=== PATIENT | male | born 1975 | race Hispanic/Latino ===

== ENCOUNTER 2017-03-10 14:42 | Inpatient (IN) | payer SELFPAY ==
[2017-03-10 18:34] LABS: #Basophils 0.1 thou/uL (0.0-0.2); #Eosinphils 0.1 thou/uL (0.0-0.7); #Monocytes 0.3 thou/uL (0.11-0.59); %Basophils 1.3 % (0.0-1.0); %Lymphocytes 30.4 % (21.0-51.0); %Neutrophils 62.3 % (42.0-75.0); Hemoglobin 15.1 g/dL (14.0-18.0); Mean Corpuscular HGB CONC 33.2 g/dL (32.0-36.0); Mean Corpuscular Hemoglobin 30.4 pg (27.0-31.0); Mean Corpuscular Volume 91.7 fl (80.0-94.0); Mean Platelet Volume 8.3 fL (7.4-10.4); Platelet Count 264 thou/uL (130-400); RBC Distribution Width 11.7 % (11.5-14.5); Red Blood Cell (RBC) Count 4.95 mill/uL (4.70-6.10); White Blood Cell (WBC) Count 6.5 thou/uL (4.8-10.8)
[2017-03-10 18:54] LABS: ALT (SGPT) 46 U/L (8-55); AST (SGOT) 33 U/L (5-34); Albumin 4.3 g/dL (3.5-5.0); Alkaline Phosphatase 117 U/L (40-150); Anion Gap 25 mmol/L (10-20); BUN (Urea Nitrogen) 10 mg/dL (8.9-20.6); Bilirubin, Total 0.5 mg/dL (0.2-1.2); Calc. Creatinine Clearance 0 mL/min (70-130); Calcium 9.1 mg/dL (7.8-10.44); Carbon Dioxide 10 mmol/L (22-29); Chloride 97 mmol/L (98-107); Estimated GFR-MDRD 58; Globulin 3.8 g/dL (2.4-3.5); Glucose 440 mg/dL (70-105); Potassium 3.6 mmol/L (3.5-5.1); Protein, Total 8.1 g/dL (6.0-8.3); Sodium 128 mmol/L (136-145)
[2017-03-10 19:23] LABS: Bilirubin Negative (Negative); Blood, Urine Negative (Negative); Clarity CLEAR (Clear); Glucose, Urine (Dipstick) >=1000 mg/dL (Negative); Leukocyte Negative (Negative); Nitrite Negative (Negative); Protein, Urine (Dipstick) 30 mg/dL (Neg-Trace); Specific Gravity, Urine 1.041 (1.002-1.036); Urobilinogen 0.2 mg/dL (0.2-1.0)
[2017-03-10 19:25] LABS: Bacteria/HPF None Seen HPF (None Seen); Hyaline Casts/LPF 7-10 HYALINE CAST LPF (0-3 Hyaline); Pathc Cast-AUWi Flag 1.49 (0-2.49); Squamous Epithelial 0-3 HPF (0-3); WBC/HPF 0-3 HPF (0-3)
[2017-03-10] MEDS ORDERED: Insulin Regular 300 UNITS/3 ML VIAL ONE (19:40)
[2017-03-10] MEDS ORDERED: Ondansetron HCl/PF 4 MG/2 ML Vial ONE (19:40)
[2017-03-10 19:46] LABS: Base Excess-Venous -14.1 mmol/L (-30.0-30.0); Bicarbonate (HCO3v) 9.2 mmol/L (1.0-85.0); CO2 Tension (PvCO2) 18.3 mmHg (41.0-51.0); Calcium, Ionized 1.07 mmol/L (1.12-1.32); Hemoglobin - Calc 17.3 g/dL (12.0-18.0); O2 Tension (PvO2) 85.6 mmHg (35.0-45.0); Potassium 3.7 mmol/L (3.4-4.7); T. Carbon Dioxide 9.8 mmol/L (1.0-85.0); pH (Venous) 7.309 (7.35-7.45); vO2 Saturation-calc 95.9 % (0.0-100.0)
[2017-03-10 19:52] LABS: Magnesium 1.9 mg/dL (1.6-2.6); Phosphorus 3.1 mg/dL (2.3-4.7)
[2017-03-10] MEDS ORDERED: Insulin Regular 100 units/100 ml in NS IVPB SCH (20:15)
[2017-03-10] MEDS ORDERED: NS 0.9% w/ 20 MEQ KCL 1,000 ML IV SCH (20:15)
--- NOTE | 2017-03-10 20:32 | RAD ---
PORTABLE CHEST: 03/10/17 HISTORY: Sore throat and cough. Lungs are clear. No infiltrate identified. Heart and mediastinum unremarkable. IMPRESSION: No acute process. POS: [facility]
[2017-03-11] MEDS ORDERED: D5 1/2 NS w/20 mEq KCL 1,000 ML IV PRN (01:00)
[2017-03-11] MEDS ORDERED: Sodium Chloride 0.9% 1,000 ML IV PRN ×4 (01:00)
[2017-03-11] MEDS ORDERED: Dextrose 5% in Water 1,000 ML IV PRN ×4 (01:00→20:31)
[2017-03-11] MEDS ORDERED: Dextrose 5 %-0.45 % NaCl 1,000 ML IV PRN (01:00)
[2017-03-11] MEDS ORDERED: NS 0.9% w/ 20 MEQ KCL 1,000 ML IV PRN ×2 (01:00)
[2017-03-11] MEDS ORDERED: Dextrose 50% Abboject 50 ML SYRINGE SLOW IVP PRN ×4 (01:00→20:31)
[2017-03-11] MEDS ORDERED: CCU Electrolyte Replacement 1 EACH IVPB SCH (01:00)
[2017-03-11] MEDS ORDERED: Ondansetron HCl/PF 4 MG/2 ML Vial IVP PRN (01:00)
[2017-03-11] MEDS: D5 1/2 NS w/20 mEq KCL 1,000 ML IV SCH ×2 (01:05→02:13)
[2017-03-11] MEDS ORDERED: Potassium Chloride 40 MEQ in Sodium Chloride 0.9% 250 ML 250 ML IVPB PRN (01:14)
[2017-03-11] MEDS ORDERED: Magnesium 2 GM/NS 0.9% 100 ML 2 GM in Premix Bag 1 BAG IVPB PRN (01:14)
[2017-03-11] MEDS ORDERED: Potassium Phosphate 12 MMOL in Sodium Chloride 0.9% 250 ML 250 ML IV PRN (01:14)
[2017-03-11] MEDS ORDERED: Magnesium Oxide 400 MG TAB PO PRN ×2 (01:14)
[2017-03-11] MEDS ORDERED: Potassium Chloride 20 MEQ TAB PO PRN (01:14)
[2017-03-11] MEDS ORDERED: Potassium Phosphate 9 MMOL in Sodium Chloride 0.9% 100 ML IVPB PRN (01:14)
[2017-03-11] MEDS ORDERED: Potassium Phosphate 15 MMOL in Sodium Chloride 0.9% 250 ML 250 ML IV PRN (01:14)
[2017-03-11] MEDS ORDERED: CCU ELECTROLYTE REPLACEMENT PROTOCOL FS PRN (01:14)
[2017-03-11] MEDS ORDERED: Potassium Chloride 40 MEQ in Premix Bag 1 BAG IVPB PRN (01:14)
[2017-03-11 01:24] VITALS: BMI 23.2
[2017-03-11 01:35] LABS: Hemoglobin A1c 14.1 % (4.0-6.0)
[2017-03-11 01:47] LABS: Anion Gap 10 mmol/L (10-20); BUN (Urea Nitrogen) 7 mg/dL (8.9-20.6); Calc. Creatinine Clearance 89 mL/min (70-130); Calcium 8.2 mg/dL (7.8-10.44); Carbon Dioxide 17 mmol/L (22-29); Chloride 110 mmol/L (98-107); Estimated GFR-MDRD Greater than 90; Glucose 247 mg/dL (70-105); Sodium 134 mmol/L (136-145)
[2017-03-11 01:57] LABS: Potassium 2.9 mmol/L (3.5-5.1)
--- NOTE | 2017-03-11 02:51 | ADD-HP ---
Please see the history and physical done by the resident for which I concur. The patient was seen an d evaluated and discussed with the resident. HISTORY OF PRESENT ILLNESS: A 41-year-old male who for the last month has been feelin g weaker, more tired in the last 4 or 5 days, a lot of abdominal pain, little bit of vomiting, also i s complaining of sore throat. Actually, he was seen in a "[facility]" earlier this week, but no blood workup was done. He was found to be in DKA. He has not had blood workup ever done in his life . No family history of diabetes; little bit of polyuria and polydipsia; and a lot of weight loss, no t sure how much. PAST MEDICAL HISTORY: All per the resident's history and physical, which was reviewed. All of which actually that were completely negative other than above. PAST SURGICAL HISTORY: All per the resident's history and physical, which was reviewed. All of whic h actually that were completely negative other than above. MEDICATIONS: All per the resident's history and physical, which was reviewed. All of which actually that were completely negative other than above. SOCIAL HISTORY: All per the resident's history and physical, which was reviewed. All of which actua lly that were completely negative other than above. REVIEW OF SYSTEMS: All per the resident's history and physical, which was reviewed. All of which ac tually that were completely negative other than above. PHYSICAL EXAMINATION: VITAL SIGNS: Afebrile. Vital signs are stable. GENERAL: No apparent distress. Vitals were fine on IV fluids currently. HEENT: Moist mucosa currently. Of note, throat did show some thrush lesions on the soft palate. NECK: No lymphadenopathy, thyromegaly. CHEST: Clear. CARDIOVASCULAR: Regular rate and rhythm. ABDOMEN: Positive bowel sounds. Soft, nontender, nondistended. EXTREMITIES: No edema. LABORATORY AND X-RAY FINDINGS: Blood workup significant for normal CBC. Venous blood gas, pH 7.30, pCO2 of 18, pO2 of 85. Chemistry significant for a low sodium of 128. Initially, sugar was 440. Po tassium borderline low at 3.6. Positive beta hydroxybutyrate. Urine significant for ketones. ASSESSMENT AND PLAN: 1. Diabetic ketoacidosis. We will admit to the [facility] for a standard DKA protocol, IV insulin drip, a nd follow electrolytes. Already started and replaced his potassium, which is already in the low end of normal. I anticipate him switching over to insulin and subcu scheduled insulin and off IV drip. Hopefully, fairly quickly once the gap closes and we get him out of acidosis. He will need a lot cou nseling. They did give him some calcium in the room tonight; discussing diabetes implications and tr eatment options, and the importance of diet. 2. Thrush. We will treat that with Nystatin swish and swallow.
--- NOTE | 2017-03-11 04:18 | HP-2 ---
DATE OF ADMISSION: 03/10/2017 CODE STATUS: FULL. PRIMARY CARE PHYSICIAN: None. ATTENDING: Cesar Mcfarland MD RESIDENT: Essence Anderson MD HISTORIAN: Self. CHIEF COMPLAINT: Abdominal pain. HISTORY OF PRESENT ILLNESS: This is a 41-year-old male with no known past medical history, who prese nts to the ED for abdominal pain that has been going on for 10 days, diffuse abdominal pain associate d with vomiting that started yesterday. Denies any diarrhea. He also denies any fevers. He also re ports polyuria and polydipsia. This has been going on for several weeks. The patient has had signif icant weight loss over the past month, he reports around 40 pounds, but has not actually weighed hims elf. He has no history of diabetes. No family history of diabetes. In the ER, he was given normal saline with KCl at 500, Humulin R 10 units IV push, Novolin 6.5 units per hour, initially 1 liter cristopher us, Zofran 4 mg. PAST MEDICAL HISTORY: None. PAST SURGICAL HISTORY: None. ALLERGIES: No known drug allergies. MEDICATIONS: None. FAMILY HISTORY: None. SOCIAL HISTORY: Smokes tobacco socially. Alcohol, drinks 20 beers on weekends and about 1-2 beers d uring the week night. He denies any drug use. REVIEW OF SYSTEMS: General: Denies fever or chills. Positive for weight change. Eyes: Negative f or vision changes or eye pain. ENT: Negative for rhinorrhea or sore throat. Respiratory: Negative for cough or shortness of breath. Cardiovascular: Negative for chest pain or edema. Gastrointesti nal: Negative for nausea, vomiting, or diarrhea. Genitourinary: Positive for polyuria. Endocrine: Positive for polydipsia. Skin: Negative for rashes or lesions. Musculoskeletal: Negative for pa in or tenderness. Neurologic: Negative for weakness or numbness. PHYSICAL EXAMINATION: VITAL SIGNS: Blood pressure 138/97, pulse 84, respiratory rate 18, temperature 98.9, pulse ox 99% on room air, current weight 65.77 kilograms. GENERAL: Alert, oriented x3, in no acute distress, well-nourished, appropriately interactive. EYES: PERRLA. Extraocular muscles are intact. Conjunctivae within normal limits. ENT: Nasal mucosa and oropharynx within normal limits. NECK: Supple. No lymphadenopathy. CARDIAC: Regular rate and rhythm. No murmurs, gallops, 2+ radial and pedal pulses. LUNGS: Normal effort, no retractions, clear to auscultation bilaterally. SKIN: Warm, dry. No cyanosis or lesions. ABDOMEN: Soft, mildly tender to palpation diffusely. No guarding or rebound tenderness. Normoactiv e bowel sounds. No masses or distention. EXTREMITIES: No cyanosis or edema. MUSCULOSKELETAL: Structure and tone within normal limits. Full range of motion. NEUROLOGICAL: No focal deficits. Sensation within normal limits. GCS 15. PSYCHIATRIC: Appropriate. LABORATORY AND DIAGNOSTIC DATA: WBC 6.5, hemoglobin 15.1, hematocrit 45.4, platelets 264. Sodium 12 8, corrected to 133, potassium 3.6, chloride 97, CO2 of 10, BUN 10, creatinine 1.35, GFR 58, glucose 440, anion gap 21, calcium 9.1, total bilirubin 0.5, AST 33, ALT 46, alkaline phosphatase 117. Beta hydroxybutyrate 8.51, phosphorus 3.1, magnesium 1.9. Rapid Strep screen negative. Urinalysis showed 30 protein, 80 ketones, and greater than 1000 glucose. VBG had a pH of 7.3, pCO2 of 18.3, pO2 of 85 .6. Chest x-ray showed no acute process. ASSESSMENT AND PLAN: This is a 41-year-old male who presents with: 1. Diabetic ketoacidosis. The patient has elevated ketones, anion gap of 21, pH of 7.3. No known h istory or diagnosis of diabetes. We will admit to IMCU. We will make the patient n.p.o., start an i nsulin drip and fluids with potassium chloride until the patient's gap close. We will check q.4 hour BMPs. We will monitor the anion gap and potassium closely. We will start on subcutaneous insulin o nce the gap closes. 2. Acute kidney injury. The patient is dehydrated secondary to diabetic ketoacidosis. We will give heavy fluids following the DKA protocol, monitor with q.4 hour BMPs. 3. Diabetes mellitus is a new diagnosis. Patient will be started on an insulin regimen and discharg ed on diabetic supplies. We will consult dietitian. We will check an A1c. 4. Alcohol abuse. Patient is a binge drinker on the weekends. We will put on ASE protocol and coun seled about cessation. 5. Venous thromboembolism prophylaxis, sequential compression devices. DISPOSITION: Admit to IMCU. Symptomatic medication will be provided. History and physical exam as well as management discussed with Dr. Mcfarland.
[2017-03-11 04:46] LABS: Anion Gap 8 mmol/L (10-20); BUN (Urea Nitrogen) 7 mg/dL (8.9-20.6); Calc. Creatinine Clearance 102 mL/min (70-130); Calcium 8.2 mg/dL (7.8-10.44); Carbon Dioxide 18 mmol/L (22-29); Chloride 111 mmol/L (98-107); Estimated GFR-MDRD Greater than 90; Glucose 159 mg/dL (70-105); Sodium 134 mmol/L (136-145)
[2017-03-11] MEDS ORDERED: Insulin NPH/Reg Insulin Hm 300 UNITS/3 ML VIAL SC SCH (07:30)
[2017-03-11 07:53] LABS: Anion Gap 8 mmol/L (10-20); BUN (Urea Nitrogen) 6 mg/dL (8.9-20.6); Calc. Creatinine Clearance 109 mL/min (70-130); Calcium 8.1 mg/dL (7.8-10.44); Carbon Dioxide 16 mmol/L (22-29); Chloride 113 mmol/L (98-107); Estimated GFR-MDRD Greater than 90; Glucose 188 mg/dL (70-105); Potassium 3.6 mmol/L (3.5-5.1); Sodium 133 mmol/L (136-145)
--- NOTE | 2017-03-11 07:59 | PDOC.FM ---
- Subjective Subjective: Patient feels better this morning. His abdominal pain is improved and NV are resolved. He is fatigued but otherwise improved. - Objective MAR Reviewed: Yes Vital Signs & Weight: Vital Signs (12 hours) Temp Pulse Resp BP Pulse Ox 03/11/17 07:00 98.4 F 75 16 105/72 99 03/11/17 04:00 98.1 F 71 16 109/65 97 03/11/17 02:00 98.5 F 72 16 98 03/11/17 01:10 98.5 F 72 16 113/70 97 Weight Weight 59.466 kg I&O: 03/10/17 03/11/17 03/12/17 06:59 06:59 06:59 Intake Total 1577 253 Output Total 550 Balance 1027 253 Result Diagrams: 03/10/17 18:16 03/11/17 11:36 EKG Reviewed by me: Yes Radiology Reviewed by me: Yes Phys Exam - Physical Examination Constitutional: NAD HEENT: PERRLA, moist MMs, oral pharynx no lesions Neck: no nodes Respiratory: no wheezing, no rales, no rhonchi Cardiovascular: RRR, no significant murmur, no rub Gastrointestinal: soft, non-tender, no distention, positive bowel sounds Musculoskeletal: no edema, pulses present Neurological: non-focal, normal sensation, moves all 4 limbs Psychiatric: normal affect, A&O x 3 Skin: no rash, normal turgor, cap refill <2 seconds Dx/Plan (1) DKA (diabetic ketoacidoses) Code(s): E13.10 - OTH DIABETES MELLITUS WITH KETOACIDOSIS WITHOUT COMA Status : Acute Qualifiers: Diabetes mellitus type: type 1 Diabetes mellitus complication detail: without coma Qualified Code(s): E10.10 - Type 1 diabetes mellitus with ketoacidosis without coma Plan: Gap closed and improved bicarb. DKA is resolved and we will transition to control of newly diagnosed DM. Patient safe to transfer to medical. (2) Diabetes mellitus Code(s): E11.9 - TYPE 2 DIABETES MELLITUS WITHOUT COMPLICATIONS Status: Acute Qualifiers: Diabetes mellitus type: other specified (including JAYCE) Diabetes mellitus complication status: with ketoacidosis Diabetes mellitus complication detail: without coma Diabetes mellitus shelter insulin use: without terminal worker use Qualified Code(s): E13.10 - Other specified diabetes mellitus with ketoacidosis without coma Plan: Initiating Novalin /30 because of funding. Will monitor blood sugars ACHS and initiate DM education (3) GAVIN (acute kidney injury) Code(s): N17.9 - ACUTE KIDNEY FAILURE, UNSPECIFIED Status: Acute (4) GERD (gastroesophageal reflux disease) Code(s): K21.9 - GASTRO-ESOPHAGEAL REFLUX DISEASE WITHOUT ESOPHAGITIS Status: Acute Plan: Start pronotix (5) Alcohol consumption binge drinking Code(s): F10.10 - ALCOHOL ABUSE, UNCOMPLICATED Status: Acute Plan: Patient consumes 20 drinks per night on weekend, but only 2-3 on weeknights. Will monitor with ASE protocol and PRN benzodiazapines
[2017-03-11] MEDS: Insulin NPH/Reg Insulin Hm 300 UNITS/3 ML VIAL SC SCH ×2 (08:15→20:51)
[2017-03-11] MEDS ORDERED: FLU VACC QS2017-18 36 mo. & older 0.5 ML SYRINGE IM ONE (09:00)
[2017-03-11 12:09] LABS: Anion Gap 9 mmol/L (10-20); BUN (Urea Nitrogen) 5 mg/dL (8.9-20.6); Calc. Creatinine Clearance 106 mL/min (70-130); Calcium 8.3 mg/dL (7.8-10.44); Carbon Dioxide 19 mmol/L (22-29); Chloride 109 mmol/L (98-107); Estimated GFR-MDRD Greater than 90; Glucose 189 mg/dL (70-105); Potassium 3.5 mmol/L (3.5-5.1); Sodium 133 mmol/L (136-145)
[2017-03-11] MEDS ORDERED: Insulin Regular 300 UNITS/3 ML VIAL SC PRN ×2 (13:13→17:41)
[2017-03-11] MEDS: Nystatin 500,000 UNITS/5 ML UDCUP SSW SCH ×3 (13:25→20:49)
[2017-03-11] MEDS ORDERED: HumaLOG 300 UNITS/3 ML VIAL SC PRN (17:40)
--- NOTE | 2017-03-11 19:26 | ADD-PRG ---
DATE OF SERVICE: 03/11/2017 Please see the note from Dr. Greer for which I agree. Overnight, the patient drastically improved as far as his DKA. Gap is closing although not completely as far as his acidosis, but his suga r is down. We will give him D5 now to make sure he get some insulin in him, otherwise continuing wit h same management. Exam today is totally normal. Abdomen is benign. The patient was seen, examined, evaluated, and discussed with the residents by bedside.
[2017-03-11 19:52] LABS: Anion Gap 11 mmol/L (10-20); BUN (Urea Nitrogen) 5 mg/dL (8.9-20.6); Calc. Creatinine Clearance 108 mL/min (70-130); Calcium 8.3 mg/dL (7.8-10.44); Carbon Dioxide 20 mmol/L (22-29); Chloride 103 mmol/L (98-107); Estimated GFR-MDRD Greater than 90; Glucose 399 mg/dL (70-105); Potassium 3.3 mmol/L (3.5-5.1); Sodium 131 mmol/L (136-145)
[2017-03-11] MEDS: HumaLOG 300 UNITS/3 ML VIAL SC PRN (21:52)
[2017-03-12 04:06] LABS: Anion Gap 11 mmol/L (10-20); BUN (Urea Nitrogen) 5 mg/dL (8.9-20.6); Calc. Creatinine Clearance 121 mL/min (70-130); Calcium 8.6 mg/dL (7.8-10.44); Carbon Dioxide 26 mmol/L (22-29); Chloride 105 mmol/L (98-107); Estimated GFR-MDRD Greater than 90; Glucose 134 mg/dL (70-105); Sodium 139 mmol/L (136-145)
[2017-03-12 04:10] LABS: Potassium 2.7 mmol/L (3.5-5.1)
[2017-03-12] MEDS ORDERED: Potassium Chloride 20 MEQ TAB PO SCH ×2 (04:30→13:00)
[2017-03-12] MEDS: Insulin NPH/Reg Insulin Hm 300 UNITS/3 ML VIAL SC SCH ×2 (09:14→20:12)
[2017-03-12] MEDS: Nystatin 500,000 UNITS/5 ML UDCUP SSW SCH ×4 (09:15→20:11)
--- NOTE | 2017-03-12 11:45 | PDOC.FM ---
- Subjective Subjective: Patient still has some minor epigastric pain but otherwise he says that he is doing well. He says that he has not started to give himself injections yet of insulin or learned to take his own blood sugar. He has been tolerating food without issue. - Objective MAR Reviewed: Yes Vital Signs & Weight: Vital Signs (12 hours) Temp Pulse Resp BP Pulse Ox 03/12/17 08:00 97.5 F L 74 16 97 03/12/17 07:00 97.5 F L 74 16 112/69 97 03/12/17 04:00 98.4 F 75 16 99/60 98 03/12/17 00:00 97.8 F 73 16 96/70 98 Weight Admit Weight 59.466 kg Weight 59.466 kg I&O: 03/11/17 03/12/17 03/13/17 06:59 06:59 06:59 Intake Total 1577 3403 Output Total 550 1800 Balance 1027 1603 Result Diagrams: 03/10/17 18:16 03/12/17 03:44 Phys Exam - Physical Examination Constitutional: NAD HEENT: PERRLA, moist MMs Neck: no nodes Respiratory: no wheezing, no rales, no rhonchi, clear to auscultation bilateral Cardiovascular: RRR, no significant murmur, no rub Gastrointestinal: soft, non-tender, no distention, positive bowel sounds Musculoskeletal: no edema, pulses present Neurological: non-focal, normal sensation, moves all 4 limbs Lymphatic: no nodes Psychiatric: normal affect, A&O x 3 Dx/Plan (1) Diabetes mellitus Code(s): E11.9 - TYPE 2 DIABETES MELLITUS WITHOUT COMPLICATIONS Status: Acute Qualifiers: Diabetes mellitus type: other specified (including JACYE) Diabetes mellitus complication status: with ketoacidosis Diabetes mellitus complication detail: without coma Diabetes mellitus fdc insulin use: without fdc use Qualified Code(s): E13.10 - Other specified diabetes mellitus with ketoacidosis without coma Plan: New diagnosis with C peptide pending. Initiating Novalin because of funding. Will monitor blood sugars ACHS and initiate DM education. Patient is instructed to learn from nursing for every glucose administration and accucheck. Will consult case management for help with diabetic supplies. (2) GERD (gastroesophageal reflux disease) Code(s): K21.9 - GASTRO-ESOPHAGEAL REFLUX DISEASE WITHOUT ESOPHAGITIS Status: Acute Plan: Start pronotix (3) Alcohol consumption binge drinking Code(s): F10.10 - ALCOHOL ABUSE, UNCOMPLICATED Status: Acute Plan: Patient consumes 20 drinks per night on weekend, but only 2-3 on weeknights. No signs of withdrawl and we discussed that he should not continue to drink that much on weekends and he plans to cut back to 2-3 only as a maximum. we advised that he consider stopping all etoh eventually and he says he will consider. (4) DKA (diabetic ketoacidoses) Code(s): E13.10 - OTH DIABETES MELLITUS WITH KETOACIDOSIS WITHOUT COMA Status : Resolved Qualifiers: Diabetes mellitus type: type 1 Diabetes mellitus complication detail: without coma Qualified Code(s): E10.10 - Type 1 diabetes mellitus with ketoacidosis without coma Plan: Gap closed and improved bicarb. DKA is resolved and we will transition to control of newly diagnosed DM. Patient safe to transfer to medical. (5) GAVIN (acute kidney injury) Code(s): N17.9 - ACUTE KIDNEY FAILURE, UNSPECIFIED Status: Resolved
[2017-03-12] MEDS: HumaLOG 300 UNITS/3 ML VIAL SC PRN ×3 (12:18→20:12)
--- NOTE | 2017-03-12 14:44 | ADD-PRG ---
ADDENDUM: 03/12/2017 Please see the note from Dr. Siddharth Greer, which I concur. Patient is out of DKA and we are really just trying to manage his sugars now with insulins drip for w hat dose he need at home and try to do lot of diabetic education. C peptide is still pending. Exams are fairly normal. No evidence of withdrawals from alcohol. The patient is seen and evaluated, exa mined and discussed with the residents at bedside.
[2017-03-12 15:55] LABS: Anion Gap 12 mmol/L (10-20); BUN (Urea Nitrogen) 5 mg/dL (8.9-20.6); Calc. Creatinine Clearance 106 mL/min (70-130); Calcium 8.6 mg/dL (7.8-10.44); Carbon Dioxide 24 mmol/L (22-29); Chloride 103 mmol/L (98-107); Estimated GFR-MDRD Greater than 90; Glucose 286 mg/dL (70-105); Potassium 3.6 mmol/L (3.5-5.1); Sodium 135 mmol/L (136-145)
[2017-03-13 05:35] LABS: Anion Gap 13 mmol/L (10-20); BUN (Urea Nitrogen) 7 mg/dL (8.9-20.6); Calc. Creatinine Clearance 123 mL/min (70-130); Calcium 8.8 mg/dL (7.8-10.44); Carbon Dioxide 26 mmol/L (22-29); Chloride 102 mmol/L (98-107); Estimated GFR-MDRD Greater than 90; Glucose 178 mg/dL (70-105); Potassium 3.3 mmol/L (3.5-5.1); Sodium 138 mmol/L (136-145)
[2017-03-13] MEDS: Insulin NPH/Reg Insulin Hm 300 UNITS/3 ML VIAL SC SCH ×2 (08:16→20:06)
[2017-03-13] MEDS: Nystatin 500,000 UNITS/5 ML UDCUP SSW SCH ×4 (08:17→20:06)
[2017-03-13] MEDS ORDERED: Potassium Chloride 20 MEQ TAB PO SCH (08:30)
--- NOTE | 2017-03-13 09:23 | PDOC.FM ---
- Subjective Subjective: Patient doing well overnight. Denies CP, SOB, N/V. Endorses abdomen pain which is the same as on admission, improving. - Objective MAR Reviewed: Yes Vital Signs & Weight: Vital Signs (12 hours) Temp Pulse Resp BP Pulse Ox 03/13/17 08:00 98.2 F 63 16 97 03/13/17 07:18 98.2 F 63 16 115/70 97 03/13/17 05:50 98.6 F 63 18 104/62 96 03/13/17 00:19 98.0 F 69 18 104/70 98 Weight Admit Weight 59.466 kg Weight 59.466 kg I&O: 03/12/17 03/13/17 03/14/17 06:59 06:59 06:59 Intake Total 3403 600 Output Total 1800 Balance 1603 600 Result Diagrams: 03/10/17 18:16 03/13/17 04:19 <Joe Higgins M - Last Filed: 03/13/17 09:21> - Objective Vital Signs & Weight: Vital Signs (12 hours) Temp Pulse Resp BP Pulse Ox 03/13/17 20:00 98.5 F 67 16 119/69 100 03/13/17 16:00 98.1 F 68 16 105/68 97 Weight Admit Weight 59.466 kg Weight 59.466 kg I&O: 03/12/17 03/13/17 03/14/17 06:59 06:59 06:59 Intake Total 3403 600 Output Total 1800 Balance 1603 600 Result Diagrams: 03/10/17 18:16 03/13/17 04:19 <Ines Sykes - Last Filed: 03/13/17 22:12> Phys Exam - Physical Examination Constitutional: NAD HEENT: PERRLA, moist MMs Respiratory: no wheezing, clear to auscultation bilateral Cardiovascular: RRR, no significant murmur Gastrointestinal: soft mildly tender in upper quadrants Musculoskeletal: no edema, pulses present Neurological: normal sensation, moves all 4 limbs Psychiatric: normal affect, A&O x 3 Skin: no rash <Joe Higgins - Last Filed: 03/13/17 09:21> Dx/Plan (1) Alcohol consumption binge drinking Code(s): F10.10 - ALCOHOL ABUSE, UNCOMPLICATED Status: Acute (2) GERD (gastroesophageal reflux disease) Code(s): K21.9 - GASTRO-ESOPHAGEAL REFLUX DISEASE WITHOUT ESOPHAGITIS Status: Acute (3) GAVIN (acute kidney injury) Code(s): N17.9 - ACUTE KIDNEY FAILURE, UNSPECIFIED Status: Resolved (4) DKA (diabetic ketoacidoses) Code(s): E13.10 - OTH DIABETES MELLITUS WITH KETOACIDOSIS WITHOUT COMA Status : Resolved QualifierTitle: Diabetes mellitus type: type 1 Diabetes mellitus complication detail: without coma Qualified Code(s): E10.10 - Type 1 diabetes mellitus with ketoacidosis without coma (5) Diabetes mellitus type 1 Status: Acute Plan: Type 1 vs type 2 Cpeptide 0.5 which indicates low level, leaning towards type 1 Will continue to titrate insulin to effect Continue to educate about diet and appropriate dosing <Joe Higgins - Last Filed: 03/13/17 09:21> Attending Addendum - Attending Addendum I personally evaluated the patient and discussed the management with Dr. Higgins. I agree with the History, Examination, Assessment and Plan documented above with any addition or exceptions noted below. Primary problem was DKA and newly diagnosed diabetes. Labs indicate likely type 1 diabetes. Adjusting insulin. Will continue diabetic teaching. With RUQ and epigastric abdominal pain, will get RUQ ultrasound. <Ines Sykes - Last Filed: 03/13/17 22:12>
[2017-03-13] MEDS: HumaLOG 300 UNITS/3 ML VIAL SC PRN ×2 (10:49→20:06)
--- NOTE | 2017-03-13 16:11 | ULT ---
ABDOMINAL ULTRASOUND: Date: 03-13-17 History: Abdominal pain. FINDINGS: Limited visualized portions of the pancreatic head demonstrate a normal sonographic appearance. Aimee l aorta is obscured by bowel gas. Visualized portions of the IVC, liver, spleen, and bilateral kidney s demonstrate a normal sonographic appearance. The right kidney measures 11.4 cm and the left kidney measures 12.6 cm in length. Small echogenic material is seen within the gallbladder lumen suggesting gallbladder sludge. Common d uct is normal in caliber measuring 0.4 cm. IMPRESSION: Small amount of gallbladder sludge. No gallbladder calculus is seen. The common duct is normal in ramiro iber. POS: [facility]
[2017-03-14 06:01] LABS: Anion Gap 13 mmol/L (10-20); BUN (Urea Nitrogen) 8 mg/dL (8.9-20.6); Calc. Creatinine Clearance 105 mL/min (70-130); Calcium 9.2 mg/dL (7.8-10.44); Carbon Dioxide 28 mmol/L (22-29); Chloride 102 mmol/L (98-107); Estimated GFR-MDRD Greater than 90; Glucose 167 mg/dL (70-105); Potassium 3.5 mmol/L (3.5-5.1); Sodium 139 mmol/L (136-145)
[2017-03-14] MEDS ORDERED: Potassium Chloride 20 MEQ TAB PO SCH (08:00)
[2017-03-14] MEDS: Nystatin 500,000 UNITS/5 ML UDCUP SSW SCH ×2 (09:14→12:13)
[2017-03-14] MEDS: Insulin NPH/Reg Insulin Hm 300 UNITS/3 ML VIAL SC SCH (09:14)
--- NOTE | 2017-03-14 09:19 | PDOC.FM ---
- Subjective Subjective: Patient is doing well overnight. Denies any further abdomen pain. Denies CP, SOB , N/V/D. Has been giving himself insulin shots here in hospital with training by nurses. - Objective MAR Reviewed: Yes Vital Signs & Weight: Vital Signs (12 hours) Temp Pulse Resp BP Pulse Ox 03/14/17 07:47 98.2 F 70 16 119/74 98 Weight Admit Weight 59.466 kg Weight 59.466 kg I&O: 03/13/17 03/14/17 03/15/17 06:59 06:59 06:59 Intake Total 600 500 Balance 600 500 Result Diagrams: 03/10/17 18:16 03/14/17 04:32 <Joe Higgins - Last Filed: 03/14/17 09:17> - Objective Vital Signs & Weight: Weight Admit Weight 59.466 kg Weight 59.466 kg I&O: 03/14/17 03/15/17 03/16/17 06:59 06:59 06:59 Intake Total 500 Balance 500 Result Diagrams: 03/10/17 18:16 03/14/17 04:32 <Ines Sykes - Last Filed: 03/15/17 11:10> Phys Exam - Physical Examination Constitutional: NAD Respiratory: no wheezing, clear to auscultation bilateral Cardiovascular: RRR, no significant murmur Gastrointestinal: soft, non-tender Musculoskeletal: no edema, pulses present Neurological: normal sensation, moves all 4 limbs Psychiatric: normal affect, A&O x 3 <Joe Higgins - Last Filed: 03/14/17 09:17> Dx/Plan (1) Diabetes mellitus type 1 Status: Acute Plan: Type 1 vs type 2 pending labs for autoimmune DM will plan to d/c home on 70/30 insulin and glucometer. Will have patient follow up with [facility] or [facility] for further management Continue to educate about diet and appropriate dosing (2) DKA (diabetic ketoacidoses) Code(s): E13.10 - OTH DIABETES MELLITUS WITH KETOACIDOSIS WITHOUT COMA Status : Resolved QualifierTitle: Diabetes mellitus type: type 1 Diabetes mellitus complication detail: without coma Qualified Code(s): E10.10 - Type 1 diabetes mellitus with ketoacidosis without coma (3) Alcohol consumption binge drinking Code(s): F10.10 - ALCOHOL ABUSE, UNCOMPLICATED Status: Acute (4) GERD (gastroesophageal reflux disease) Code(s): K21.9 - GASTRO-ESOPHAGEAL REFLUX DISEASE WITHOUT ESOPHAGITIS Status: Acute (5) GAVIN (acute kidney injury) Code(s): N17.9 - ACUTE KIDNEY FAILURE, UNSPECIFIED Status: Resolved - Plan Plan: likely ok to d/c home today pending further education <Joe Higgins - Last Filed: 03/14/17 09:17> Attending Addendum - Attending Addendum I personally evaluated the patient and discussed the management with Dr. Higgins. I agree with the History, Examination, Assessment and Plan documented above with any addition or exceptions noted below. The patient has received diabetic education. Will also get friends trained prior to discharge. Pt's insulin regimen is being adjusted and will need to f/ u with pcp as an outpt. <Ines Sykes - Last Filed: 03/15/17 11:10>
[2017-03-14] MEDS: HumaLOG 300 UNITS/3 ML VIAL SC PRN (12:06)
[2017-03-14 16:38] VITALS: BP 102/63; TEMP 98
== END 2017-03-14 16:39 | disposition home or self-care (01) | DRG 638 ==
LOC: ERS 14:42 → IMCU/EMU 20:46 → T4-B 03-12 12:51
PROVIDERS: ADMIT Family Medicine; ATTEND Family Medicine
DX: E10.10 Type 1 diabetes mellitus with ketoacidosis without coma (principal); N17.9 Acute kidney failure, unspecified; E86.0 Dehydration; F10.10 Alcohol abuse, uncomplicated; B37.9 Candidiasis, unspecified; F17.200 Nicotine dependence, unspecified, uncomplicated; K21.9 Gastro-esophageal reflux disease without esophagitis
CPT/HCPCS: 36415; 36416; 71045; 76700; 80048; 80053; 81003; 81015; 82010; 82330; 82803; 83036; 83519; 83690; 83735; 84100; 84681; 85025; 86341; 87081; 87430; 96360; 96361; 96365; 96366; 96375; 96376; 99406; J1815; J2405; J3480; J7050

== ENCOUNTER 2017-05-27 02:26 | Emergency (ER) | payer SELFPAY | END 2017-05-27 03:00 | disposition home or self-care (01) | LOC: ERS 02:26 | DX: I10 Essential (primary) hypertension; M54.5 Low back pain; E11.9 Type 2 diabetes mellitus without complications; V89.2XXA Person injured in unspecified motor-vehicle accident, traffic, initial encounter; F17.210 Nicotine dependence, cigarettes, uncomplicated; Z79.4 Long term (current) use of insulin | CPT/HCPCS: 99283 ==